=== PATIENT | male | born 1955 | race Caucasian/White ===

== ENCOUNTER 2019-02-04 16:52 | Emergency (ER) | payer SELFPAY ==
[~2019-02-04] VITALS: Ht 175.3 cm; Wt 83.9 kg
[2019-02-04 17:05] VITALS: BP_SYST 116
== END 2019-02-04 19:43 | disposition left against medical advice (07) ==
LOC: SED 16:52
DX: M79.605 Pain in left leg (principal); Z53.21 Procedure and treatment not carried out due to patient leaving prior to being seen by health care provider